=== PATIENT | female | born 1950 | race Caucasian/White ===

== ENCOUNTER → 2017-03-13 | Outpatient (CLI) | payer MEDICARE ==
[2014-03-31 13:15] VITALS: BP 128/70
[~2017-03-13] MED LIST: ALPR1TAB2 PO; DEXL60CA PO; HYDR-971 PO; MULT1CAP15 PO
--- NOTE | 2017-03-13 14:38 | KCIC ---
PROCEDURE CT maxillofacial without contrast. HISTORY Chronic sinusitis with drainage and left ear pain. TECHNIQUE Axial images and coronal and sagittal re-formatted images are provided. One or more of the following individualized dose reduction techniques were utilized for this exam: 1. Automated exposure control. 2. Adjustment of the mA and/or kV according to patient's size. 3. Use of iterative reconstruction technique. COMPARISON None. FINDINGS Frontal sinuses are clear. Frontal recesses are patent. Ethmoid air cells are clear. Sphenoid sinuses are clear. Maxillary sinuses are clear. Ostiomeatal units are patent. There is slight nasal septal deviation to the right superiorly into the left inferiorly. Small spur inferiorly contacts the left inferior turbinate. Mastoid air cells are clear. Orbital contents are unremarkable. IMPRESSION Paranasal sinuses are clear. Electronically signed by: Robert Fleming MD (March 13, 2017 14:36:52)
== END | disposition home or self-care (01) ==
LOC: KCIC CT 13:48
PROVIDERS: ATTEND Otolaryngology
DX: J32.9 Chronic sinusitis, unspecified (principal); H92.02 Otalgia, left ear
CPT/HCPCS: 70486

== ENCOUNTER → 2019-03-24 | Outpatient (CLI) | payer MEDICARE ==
[2014-03-31 13:15] VITALS: BP 128/70
[~2019-03-24] MED LIST changes: -DEXL60CA PO; +DEXL60CA2 PO; +HYDR-3164 PO; -HYDR-971 PO; +IOHEXOL 240 MG/ML 50ML VIAL. PO ONE; +IOHEXOL 300 MG/ML 100ML VIAL. IV ONE
--- NOTE | 2019-03-24 12:17 | KCIC ---
CT of the abdomen and pelvis with contrast 03/24/2019 INDICATION: Abdominal pain. History of recurrent diverticulitis. History of cholecystectomy. COMPARISON STUDY: None available. TECHNIQUE: Multidetector CT imaging of the abdomen and pelvis was performed following the administration of intravenous contrast. Findings no acute abnormality. The liver is diffusely low in attenuation. This is nonspecific but most commonly reflects some degree of hepatic steatosis. Postsurgical changes following cholecystectomy noted. Adrenal glands are unremarkable. The spleen is unremarkable. The kidneys are unremarkable. Pancreas is unremarkable. There is no evidence of bowel obstruction. Relatively short segment pericolonic inflammatory changes seen. Associated colonic wall thickening is noted. Punctate foci of gas adjacent to the colon could represent small diverticula. Microperforation not excluded. No abscess is identified. Findings consistent with acute diverticulitis. The bladder is decompressed. No significant free fluid is identified. Circumaortic left renal vein noted. No acute osseous changes are identified. IMPRESSION: Short segment inflammatory change including bowel with wall thickening and pericolonic inflammatory change involving the descending colon. Possible small diverticula versus microperforation noted. Findings consistent with acute diverticulitis. Given provided history of multiple episodes of acute diverticulitis, surgical consultation should be considered. CT DOSING PQRS STATEMENT: One or more of the following individualized dose reduction techniques were utilized for this examination: 1. Automated exposure control 2. Adjustment of the mA and/or kV according to patient size 3. Use of iterative reconstruction technique Electronically signed by: Frandy Zayas MD (03/24/2019 12:14 PM) [id number]
== END | disposition home or self-care (01) ==
LOC: KCIC CT 09:01
PROVIDERS: ATTEND Internal Medicine
DX: K57.92 Diverticulitis of intestine, part unspecified, without perforation or abscess without bleeding (principal); K52.89 Other specified noninfective gastroenteritis and colitis; Z90.49 Acquired absence of other specified parts of digestive tract
CPT/HCPCS: 74177; 82565; Q9966; Q9967

== ENCOUNTER → 2019-04-22 | Outpatient (CLI) | payer MEDICARE ==
[2014-03-31 13:15] VITALS: BP 128/70
--- NOTE | 2019-04-22 12:52 | KCIC ---
EXAM: CT Abdomen and Pelvis without IV contrast CLINICAL HISTORY: Diverticulitis COMPARISON: 03/24/2019 TECHNIQUE: Helical CT of the abdomen and pelvis without intravenous contrast. Axial, coronal and sagittal reformatted images were generated. PQRS compliance statement - One or more of the following individualized dose reduction techniques were utilized for this study: 1. Automated exposure control 2. Adjustment of the mA and/or kV according to patient size 3. Use of iterative reconstruction technique FINDINGS: Lack of intravenous contrast limits evaluation of solid organs, vasculature, and lymph nodes. Lower chest: Lung bases are clear. Abdomen and Pelvis: Diffuse hepatic hypoattenuation may be seen with hepatic steatosis. No focal liver lesion. Accounting for postcholecystectomy change, no biliary ductal dilatation.. Spleen is unremarkable. Adrenal glands are normal. Pancreas is unremarkable. Symmetric nephrograms. No focal renal lesion. No hydronephrosis. No focal renal lesion. No hydronephrosis or hydroureter. No abdominal or pelvic lymphadenopathy by size criteria. Colonic diverticulosis. The degree of pericolonic fat infiltration has since nearly resolved with trace residual fat infiltration at the junction of the descending and sigmoid colon. No free or loculated fluid collection is seen. No evidence of bowel obstruction. No abdominal or pelvic ascites. Bones: Osseous structures are stable. IMPRESSION: Diverticulitis with degree of colonic infiltration has significantly improved with trace residual infiltration at the junction of the descending colon-sigmoid colon. No free or loculated fluid collection. No free intraperitoneal gas. Electronically signed by: Mahesh La MD (04/22/2019 12:49 PM) [id number]
== END | disposition home or self-care (01) ==
LOC: KCIC CT 08:05
PROVIDERS: ATTEND Colon & Rectal Surgery
DX: K57.30 Diverticulosis of large intestine without perforation or abscess without bleeding (principal)
CPT/HCPCS: 74177; Q9966; Q9967

== ENCOUNTER 2020-01-17 10:58 | Outpatient (CLI) | payer OTHER ==
[~2020-01-17 10:58] MED LIST changes: +HYDROmorphone 2 MG/ML VIAL IV PRN; -IOHEXOL 240 MG/ML 50ML VIAL. PO ONE; -IOHEXOL 300 MG/ML 100ML VIAL. IV ONE; +IV RINGERS,LACTATED 1000ML 1,000 ML IV SCH; +LIDOCAINE 1% PF 2 ML VIAL. ID PRN; +LIDOCAINE 2% PF 5 ML VIAL. ONE; +MORPHINE SULFATE 2 MG/ML VIAL. IV PRN; +ONDANSETRON PF 4 MG/2 ML VIAL. IV PRN; +PROCHLORPERAZINE 10 MG/2 ML VIAL. IV PRN; +PROPOFOL 50 ML IV ONE; +fentaNYL PF VIAL 100 MCG/2 ML VIAL IV PRN
[2020-01-17 11:10] VITALS: BP 148/79
--- NOTE | 2020-01-17 11:28 | RAD ---
MR of the right shoulder HISTORY: Right shoulder pain after an injury months ago. TECHNIQUE: Routine multiplanar sequences are obtained. FINDINGS: The acromioclavicular joint is mildly degenerative. Moderate motion degradation on the exam. Rotator cuff tendinosis with heterogeneous signal. Partial-thickness articular surface tearing throughout the supraspinatus and infraspinatus tendon. Linear full-thickness nonretracted tear of the anterior supraspinatus footprint, measuring about 1 cm AP diameter without retraction. Subscapularis tendinosis with mild partial tearing. Mild rotator cuff muscle atrophy. Mild fluid in the subdeltoid bursa. Small amount of glenohumeral joint fluid. No evidence of para labral cyst. The superior labrum is mildly blunted with mild signal but no evidence of acute detachment or separation. Mild biceps tendinosis. No acute fracture. No aggressive bone destruction. No acute soft tissue abnormality. IMPRESSION: 1. Rotator cuff tendinosis. Broad deep articular surface tearing through the supraspinatus and infraspinatus tendon, with a small nonretracted full-thickness tear at the anterior supraspinatus footprint. Partial subscapularis tendon tear. 2. Superior labrum degeneration without clear-cut labral detachment. 3. Mild biceps tendinosis. Electronically signed by: Mike West MD (01/17/2020 11:25 AM) [id number]
== END 2020-01-17 11:20 | disposition home or self-care (01) ==
LOC: MRI 10:58
PROVIDERS: ATTEND Family Medicine Sports Medicine
DX: M75.111 Incomplete rotator cuff tear or rupture of right shoulder, not specified as traumatic (principal); M75.21 Bicipital tendinitis, right shoulder; M19.011 Primary osteoarthritis, right shoulder
CPT/HCPCS: 73221; J2001; J2704

== ENCOUNTER 2021-10-21 07:43 | Emergency (ER) | payer MEDICARE, OTHER ==
[~2021-10-21] VITALS: Ht 157.5 cm; Wt 116.4 kg
[~2021-10-21 07:43] MED LIST changes: -HYDROmorphone 2 MG/ML VIAL IV PRN; -IV RINGERS,LACTATED 1000ML 1,000 ML IV SCH; -LIDOCAINE 1% PF 2 ML VIAL. ID PRN; -LIDOCAINE 2% PF 5 ML VIAL. ONE; -MORPHINE SULFATE 2 MG/ML VIAL. IV PRN; -ONDANSETRON PF 4 MG/2 ML VIAL. IV PRN; -PROCHLORPERAZINE 10 MG/2 ML VIAL. IV PRN; -PROPOFOL 50 ML IV ONE; -fentaNYL PF VIAL 100 MCG/2 ML VIAL IV PRN
[2021-10-21] MEDS ORDERED: KETOROLAC 30 MG/ML VIAL. IM ONE (08:15)
[2021-10-21] MEDS ORDERED: DEXAMETHASONE 4 MG TABLET PO ONE (08:15)
[2021-10-21] MEDS ORDERED: ONDANSETRON ODT 4 MG TAB.RAPDIS. PO ONE (08:30)
--- NOTE | 2021-10-21 09:29 | PHYS DOC ---
Past Medical History Past Medical History: Anxiety, Arthritis, Depression Additional Past Medical Histor: "blood clot" LLE Past Surgical History: Cholecystectomy, Tonsillectomy Additional Past Surgical Histo: [place] teeth removal Smoking Status: Never Smoker Alcohol Use: None Drug Use: None General Adult EDM: Chief Complaint: KNEE SWELLING HPI: HPI: Patient is a 71 year old female who presents with left knee pain. She states she has had left knee pain for a few months and has seen an employment law specialist who told her that she needs a cartilage replacement, but she has not had further follow-up. She states that her pain worsened 2 days ago and she had difficulty walking and then woke up this morning and could not put weight on the leg. She states her pain is a 10/10 in intensity and that she cannot move her left leg all at. She has also noticed some swelling of her left knee and left ankle. She has used Tylenol as needed at home for the pain without relief. She states she took one of her mom's hydrocodone pills this morning at 4AM which did not help the pain and made her feel nauseous. She has a brace at home but states it does not fit so she has not been wearing it. She otherwise has no complaints. Review of Systems: Review of Systems: Constitutional: Denies fever or chills Respiratory: Denies cough or shortness of breath Cardiovascular: Denies chest pain or palpitations Musculoskeletal: Reports left knee pain and swelling, left ankle swelling; denies deformity Integument: Denies any redness or bruising Complete systems were reviewed and found to be within normal limits, except as documented in this note. Heart Score: C/O Chest Pain: N/A Current Medications: Current Medications Medications (Trade) Dose Ordered Sig/Danie Start Time Stop Time Status Last Admin Dose Admin Dexamethasone (Decadron) 10 mg 1X ONCE 10/21/21 08:15 10/21/21 08:16 DC 10/21/21 08:43 10 MG Ketorolac Tromethamine (Toradol 30mg Vial) 30 mg 1X ONCE 10/21/21 08:15 10/21/21 08:16 DC 10/21/21 08:44 30 MG Ondansetron HCl (Zofran Odt) 4 mg 1X ONCE 10/21/21 08:30 10/21/21 08:31 DC 10/21/21 08:44 4 MG Allergies: Allergies: Allergies Coded Allergies Type Severity Reaction Last Updated Verified Latex, Natural Rubber Allergy Intermediate Rash 03/31/14 Yes Tetracyclines Allergy Intermediate THROAT SWELLED 03/31/14 Yes adhesive Allergy Intermediate RASH FROM BANDAID 03/31/14 Yes omeprazole Allergy Intermediate TONGUE SWELLED 03/31/14 Yes Physical Exam: PE: Constitutional: Well developed, well nourished, moderate distress secondary to pain, non-toxic appearance HENT: Normocephalic, atraumatic Eyes: Conjunctiva normal, no discharge Neck: Normal range of motion, supple Lungs & Thorax: No respiratory distress, equal chest rise and fall Skin: Warm, dry, no erythema, no rash Extremities: Tenderness to palpation and movement to left knee, passive and active ROM limited in all planes,mild swelling to left knee, no erythema, mild swelling to left lower leg and ankle Neurologic: Alert and oriented X 3, no focal deficits noted Psychologic: Affect normal, judgment normal Current Patient Data: Vital Signs: Vital Signs Date Time Temp Pulse Resp B/P (MAP) Pulse Ox O2 Delivery O2 Flow Rate FiO2 10/21/21 08:23 100 24 175/82 (113) 98 Room Air 10/21/21 07:50 100.2 100.2 EKG: EKG: [] Radiology/Procedures: Radiology/Procedures: PROCEDURE: VENOUS LOWER EXTREMITY LEFT US DPLX VENOUS EXTREMITY LOWER LT History: Reason: swelling, hx of DVT / Spl. Instructions: / History: Comparison: None. Technique: Multiple longitudinal and transverse high resolution real-time images of the venous system of left lower extremity were obtained with color and Doppler sampling. Findings: The common femoral, superficial femoral, popliteal and proximal calf veins are all patent and demonstrate normal flow and compressibility. Normal respiratory phasicity and augmentation is present. Impression: 1. No evidence of deep vein thrombosis. Electronically signed by: Yovanny Jacinto DO (10/21/2021 10:15 AM) [id number] PROCEDURE: KNEE LEFT 3V XR KNEE _3 VIEWS_LT History: Reason: pain / Spl. Instructions: / History: Technique: 3 views left knee Comparison: None. Findings: No dislocation. No acute fracture. Moderate left knee degenerative changes with joint space narrowing and osteophyte formation. Moderate knee joint effusion. Impression: 1. Moderate left knee DJD. 2. Moderate knee joint effusion. Electronically signed by: Yovanny Jacinto DO (10/21/2021 9:46 AM) [id number] Course & Med Decision Making: Course & Med Decision Making Pertinent Imaging studies reviewed. (See chart for details) Patient presented with left knee pain and swelling with inability to bear weight. She has had left knee pain for months but had a rapid increase in pain over the past few days. X-ray of left knee was ordered which showed mild degenerative changes with osteophytes and some joint effusion. Venous doppler negative for DVT. Pain addressed. Cricket bandage applied. Patient educated on RICE. Patient stable for discharge with outpatient follow-up with PCP/orthopedics. Or thopedic referral provided. Discussed findings and plan with patient, who acknowledges understanding and agreement. Radha Disclaimer: Radha Disclaimer: This electronic medical record was generated, in whole or in part, using a voice recognition dictation system. Splinting Splinting : Location: Left knee Pre-Made Type: CRICKET bandage Pre-Proc Neuro Vasc Exam: normal Post-Proc Neuro Vasc Exam: normal, unchanged from pre-exam Departure Departure Impression: Primary Impression: Knee pain, left Qualified Codes: M25.562 - Pain in left knee Disposition: HOME / SELF CARE / HOMELESS Condition: STABLE Referrals: TOBI ZEE MD (PCP) MATT ARGUELLO Jr., DO Patient Instructions: Knee Pain, [id number], Knee Wraps (Elastic Bandage) and RICE Additional Instructions: ICE area of discomfort 20 min on then leave off next 20 mins. Repeat several times daily as needed for next few days. Scripts Naproxen (NAPROXEN) 375 Mg Tablet 375 MG PO TID PRN PRN for PAIN, #30 TAB Prov: KARI JACQUES DO 10/21/21 Oxycodone/Apap 5-325 (PERCOCET 5-325 MG TABLET ) 1 Each Tablet 0.5-1 TAB PO Q8HRS PRN for PAIN MDD 12 Tablet(s), #6 TAB 0 Refills Prov: KARI JACQUES DO 10/21/21 Prednisone (PREDNISONE) 20 Mg Tablet 2 TAB PO DAILY for 4 Days, #8 TAB Start this prescription tomorrow, Thursday10/22/21 Prov: KARI JACQUES DO 10/21/21 KARI JACQUES DO Oct 21, 2021 09:29
--- NOTE | 2021-10-21 09:49 | RAD ---
XR KNEE _3 VIEWS_LT History: Reason: pain / Spl. Instructions: / History: Technique: 3 views left knee Comparison: None. Findings: No dislocation. No acute fracture. Moderate left knee degenerative changes with joint space narrowing and osteophyte formation. Moderate knee joint effusion. Impression: 1. Moderate left knee DJD. 2. Moderate knee joint effusion. Electronically signed by: Yovanny Jacinto DO (10/21/2021 9:46 AM) [id number]
--- NOTE | 2021-10-21 10:18 | RAD ---
US DPLX VENOUS EXTREMITY LOWER LT History: Reason: swelling, hx of DVT / Spl. Instructions: / History: Comparison: None. Technique: Multiple longitudinal and transverse high resolution real-time images of the venous system of left lower extremity were obtained with color and Doppler sampling. Findings: The common femoral, superficial femoral, popliteal and proximal calf veins are all patent and demonst rate normal flow and compressibility. Normal respiratory phasicity and augmentation is present. Impression: 1. No evidence of deep vein thrombosis. Electronically signed by: Yovanny Jacinto DO (10/21/2021 10:15 AM) [id number]
[2021-10-21] MEDS ORDERED: OXYC1TAB15 PO (10:43)
[2021-10-21] MEDS ORDERED: NAPR-695 PO (10:43)
[2021-10-21] MEDS ORDERED: PRED20TA PO (10:43)
[2021-10-21] MEDS ORDERED: oxyCODONE/APAP 5/325 1 TAB TABLET PO ONE (10:45)
[2021-10-21 10:53] VITALS: BP 129/70
== END 2021-10-21 11:25 | disposition home or self-care (01) ==
LOC: ER 07:43
DX: M25.562 Pain in left knee (principal); R22.42 Localized swelling, mass and lump, left lower limb; F41.9 Anxiety disorder, unspecified; M19.90 Unspecified osteoarthritis, unspecified site; F32.9 Major depressive disorder, single episode, unspecified
CPT/HCPCS: 73562; 93971; 96372; 99285; J1885; A6450